=== PATIENT | male | born 1995 | race Caucasian/White ===

== ENCOUNTER 2021-02-07 19:36 | Emergency (ER) | payer OTHER, SELFPAY ==
[2021-02-07 19:53] VITALS: BP 149/93; PULSE 79; RESP 18; TEMP 36.9; O2SAT 99; BMI 26.6
--- NOTE | 2021-02-07 19:59 | W.ED.SKABFB ---
HPI - Skin/Abscess/Foreign Bdy General: Chief complaint: Skin/Abscess/Foreign Body Stated complaint: rash on hads an feet Time Seen by Provider: 02/07/21 19:59 History of Present Illness: HPI narrative: 25-year-old male patient comes in today with complaints of rash developing on his hands and feet. Patient also states that occasionally sore throat with some lesions in his mouth. Patient reported 2 days ago that he had had a little bit of a low-grade fever and is also pulled a tick off his foot. Patient appears well. Patient appears no acute distress. MD complaint: rash Review of Systems General: Reports: 10 or more systems reviewed and unremarkable except in HPI and below Skin/Breast: Reports: other (Rash to the palms of hands and feet.) Neuro: Reports: other Physical Exam Const: COMMON NORMALS: no acute distress and patient oriented x3 GENERAL APPEARANCE: cooperative HENMT: COMMON NORMALS: normocephalic and Normal external nose present HEAD & SCALP: normal to inspection and normocephalic NOSE: Normal external nose present MOUTH: Normal oral and palatal mucosa present THROAT: posterior oropharynx abnormal erythema Eye: GENERAL EYE: appearance normal, both eyes and all related structures Neck/C-Spine: COMMON NORMALS: full ROM Lymph: LYMPHATIC: no lymphadenopathy noted Chest: COMMONS NORMALS: normal inspection of the chest Resp: COMMON NORMALS: normal respiratory effort EFFORT & INSPECTION: Yes able to speak in complete sentences Cardio: COMMON NORMALS: regular rate and regular rhythm RATE: regular rate RHYTHM: regular rhythm GI: COMMON NORMALS: non-tender : COMMON NORMALS: Yes no CVA tenderness BLADDER/KIDNEY EXAM: Yes no CVA tenderness Back/Pelvis: COMMON NORMALS: no CVA tenderness and thoracic and lumbar spine normal to inspection Extremity: COMMON NORMALS: normal to inspection Neuro: COMMON NORMALS: patient oriented x3 and moves all extremities Psych: COMMON NORMALS: mental status grossly normal and cooperative Skin: NARRATIVE SKIN EXAM: Spotty rash noted to the hands and feet. Increased more on the hands and the feet. No other lesions noted on the exam of the body. Course Vital Signs: Vital signs: Vital Signs Temperature 98.4 F 02/07/21 19:53 Pulse Rate 79 02/07/21 19:53 Respiratory Rate 18 02/07/21 19:53 Blood Pressure 149/93 02/07/21 19:53 Pulse Oximetry 99 02/07/21 19:53 MDM - Skin/Abscess/Foreign Bdy MDM Narrative: Medical decision making narrative: 25-year-old male patient comes in with concerns of rash to the hands and feet. Patient also reports some soreness in his throat at times. Differential diagnosis includes not limited to [place] spotted fever, ampw-xckp-kvj-mouth exanthem, thrombocytopenia. Laboratory values CBC and CMP were collected. A tick panel was sent for outside labs. Due to the patient's recent tick bite makes me concerned for [place] spotted fever. Although with patient's sore throat and lesions in his mouth suggestive of a uouy-vnkx-lid-mouth viral syndrome. I recommend at this time will cover with doxycycline order a tick panel and recommend follow-up with primary care in 2 to 3 days. Patient reported understanding and agreed to plan. Discharge Plan Discharge Patient Disposition: Home Clinical Impression: Hand foot syndrome Condition: Stable Prescriptions: New doxycycline hyclate 100 mg capsule 100 mg PO BID 10 Days Qty: 20 RF: 0 Discharge Orders: Discharge ED (Routine); Ordered 02/07/21 Ordered By: Galdino Hdez Referrals: Giovanni Grewal MD [Family Provider] - Discharge Diet: Usual diet Discharge Activity: Increase activity as tolerated Patient Instructions: Hand, Foot, and Mouth Disease (ED), [place] Spotted Fever (ED), Opioid Safety Activity Restrictions/Additional Instructions: Drink lots of fluid. Take doxycycline 1 tablet twice a day for the next 10 days. Follow-up with primary care to review labs. Return to the ER for worsening symptoms or new concerns. If this is related to oysr-alun-wmo-mouth a viral syndrome the antibiotics will not work. It will have to run its usual course. Usually the patient starts to have vesicular lesions to the hands feet and mouth that may be tender. You can use Chloraseptic spray and lozenges to help with the pain. Use acetaminophen and ibuprofen for the pain. However, if this is a tick fever you should start running a fever at times with more malaise and fatigue. The doxycycline will assist with this type of infection and will improve it considerably over the next 5 to 7 days. The tick panel will indicate whether or not you have an acute infection. This lab takes up to 5 days to get the results back. Coding Level of Care Code ED Insurance Claims Specialist for Estela Hawley
[2021-02-07] MEDS: doxycycline 100 mg Tablet PO (20:19)
[2021-02-07 20:24] VITALS: BP 127/75; PULSE 76; RESP 18; O2SAT 98
[2021-02-07 20:50] LABS: Alanine Aminotransferase 23 U/L (0-41); Albumin Level 4.4 g/dL (3.5-5.2); Alkaline Phosphatase 66 IU/L (40-130); Anion Gap 11.8 (5-19); Aspartate Amino Transferase 17 U/L (0-40); Blood Urea Nitrogen 9 mg/dL (6-20); Calcium 8.8 mg/dL (8.5-10.5); Carbon Dioxide 30 mmol/L (22-29); Chloride 100 mmol/L (98-107); Globulin 2.2 g/dL (1.3-4.6); Glomerular Filtration Rate 104.6 mL/min (90-130); Glucose 84 mg/dL (65-115); Osmolality Calculated 284 mOsm/kg (285-295); Potassium 3.8 mmol/L (3.5-5.1); Sodium 138 mmol/L (136-145); Total Bilirubin 0.4 mg/dL (0.15-1.2); Total Protein 6.6 g/dL (6.6-8.7)
[2021-02-09 13:08] LABS: Lyme AB Screen <0.90 index
[2021-02-12 17:16] LABS: E. Chaffeensis AB IGG <1:64; E. Chaffeensis AB IGM <1:20
[2021-02-13 16:56] LABS: RMSF IGG NOT DETECTED; RMSF IGM NOT DETECTED
== END 2021-02-07 20:25 | disposition home or self-care (01) ==
PROVIDERS: Emergency Provider Nurse Practitioner Family
DX: B08.4 Enteroviral vesicular stomatitis with exanthem (principal)
CPT/HCPCS: 80053; 86618; 86666; 86757; 99283